=== PATIENT | female | born 1970 | race Caucasian/White ===

== ENCOUNTER → 2025-04-23 | Outpatient (CLI) | payer BC, SELFPAY ==
[2025-04-24 10:20] LABS: BVAG Candida Negative (Negative); Bacterial Vaginosis Markers Negative (Negative); Candida glabrata Negative (Negative); Candida krusei PCR Negative (Negative); Trichomonas Negative (Negative)
== END | disposition home or self-care (01) ==
LOC: SLDO 15:05
PROVIDERS: Referring Provider Physician Assistant Medical; Visit Provider Physician Assistant Medical
DX: A59.01 Trichomonal vulvovaginitis (principal); N76.0 Acute vaginitis; B37.89 Other sites of candidiasis
CPT/HCPCS: 81514; 87086

== ENCOUNTER → 2025-07-21 | Outpatient (CLI) | payer BC, SELFPAY ==
[2025-07-22 09:29] LABS: BVAG Candida Negative (Negative); Bacterial Vaginosis Markers Negative (Negative); Candida glabrata Negative (Negative); Candida krusei PCR Negative (Negative); Trichomonas Negative (Negative)
== END | disposition home or self-care (01) ==
LOC: SLDO 14:52
PROVIDERS: Referring Provider Specialist; Visit Provider Specialist
DX: B37.89 Other sites of candidiasis (principal); N76.0 Acute vaginitis; A59.01 Trichomonal vulvovaginitis
CPT/HCPCS: 81514

== ENCOUNTER → 2025-08-27 | Outpatient (CLI) | payer BC, SELFPAY ==
[2025-08-27 11:42] LABS: Urea Breath Test Negative (Negative)
== END | disposition home or self-care (01) ==
LOC: COPL 08:57
PROVIDERS: PCP Nurse Practitioner Family; Referring Provider Nurse Practitioner Family; Visit Provider Nurse Practitioner Family
DX: R14.1 Gas pain (principal)
CPT/HCPCS: 83013; 83014

== ENCOUNTER → 2025-10-04 | Outpatient (CLI) | payer BC, SELFPAY ==
--- NOTE | 2025-10-04 | XR_ITS ---
EXAMINATION: Bilateral wrist 6 views TECHNIQUE: AP oblique lateral each wrist total 6 views Date and time: October 04, 2025, 1245 hours INDICATIONS: Chronic wrist pain FINDINGS: Moderate osteopenia. No fracture or dislocation involving either wrist. Minimal osteoarthritis first carpometacarpal joints IMPRESSION: No fracture or dislocation involving either hand No erosive or other significant arthritic change involving either hand
--- NOTE | 2025-10-04 | XR_ITS ---
Examination: Bilateral hands, 6 views. Technique: AP, Oblique, Lateral each hand total 6 views Date and time of exam: October 04, 2025, 1246 hours INDICATIONS: Hand pain months Findings: Moderate juxta articular bone demineralization. 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
== END | disposition home or self-care (01) ==
PROVIDERS: PCP Family Medicine; Referring Provider Nurse Practitioner Gerontology; Visit Provider Nurse Practitioner Gerontology
DX: M19.242 Secondary osteoarthritis, left hand (principal); M19.241 Secondary osteoarthritis, right hand; M25.532 Pain in left wrist; M25.531 Pain in right wrist
CPT/HCPCS: 73110; 73130